=== PATIENT | male | born 1990 | race Two or more races ===

== ENCOUNTER 2023-07-24 15:07 | Emergency (ER) | payer MEDICAID ==
[~2023-07-24] VITALS: Ht 177.8 cm; Wt 68.2 kg
[2023-07-24 15:48] LABS: BASOPHILS % (AUTO) 0.6 % (0.0-2.0); EOSINOPHILS % (AUTO) 4.5 % (1.0-6.0); HEMATOCRIT 41.9 % (41-53); HEMOGLOBIN 14.4 g/dL (13.5-17.5); LYMPHOCYTES # (AUTO) 3.8 K/uL (1.0-4.8); LYMPHOCYTES % (AUTO) 39.1 % (22.0-44.0); MEAN CORPUSCULAR HEMOGLOBIN 29.3 pg (26.0-34.0); MEAN CORPUSCULAR HGB CONC 34.3 G/dL (31.0-37.0); MEAN CORPUSCULAR VOLUME 85 fL (80-100); MONOCYTES # (AUTO) 0.7 K/uL (0.1-1.0); MONOCYTES % (AUTO) 7.5 % (2.0-9.0); NEUTROPHILS # (AUTO) 4.7 K/uL (1.8-7.7); NEUTROPHILS % (AUTO) 48.3 % (40.0-70.0); PLATELET COUNT (AUTO) 332 K/uL (150-450); WHITE BLOOD COUNT (AUTO) 9.7 K/uL (4.5-11.0)
[2023-07-24 15:55] LABS: ANION GAP 5 mmol/L (8-16); CALCIUM, TOTAL 9.5 mg/dL (8.8-10.5); CARBON DIOXIDE 29 mmol/L (22-29); CHLORIDE 101 mmol/L (98-107); GLOMERULAR FILTR. RATE CALC > 60 mL/min (>60); GLUCOSE,RANDOM 125 mg/dL (70-110); POTASSIUM 4.2 mmol/L (3.5-5.1); SODIUM SERUM 135 mmol/L (136-145); UREA NITROGEN, BLOOD 18 mg/dL (7-18)
[2023-07-24 16:01] LABS: ALANINE AMINOTRANSFERASE 65 U/L (12-78); ALBUMIN 4.3 g/dL (3.4-5.0); ALKALINE PHOSPHATASE 106 U/L (46-116); ASPARTATE AMINOTRANSFERASE 30 U/L (15-37); BILIRUBIN,TOTAL 0.2 mg/dL (0.1-1.0); TOTAL PROTEIN, SERUM 8.4 g/dL (6.4-8.2)
[2023-07-24 16:03] LABS: TROPONIN I-HIGH SENSITIVITY 6 ng/L (<76)
[2023-07-24] MEDS ORDERED: ACETAMINOPHEN 500 MG TABLET PO ONE (19:15)
[2023-07-24 19:34] VITALS: BP 133/70; PULSE 72; RESP 18; TEMP 98
== END 2023-07-24 19:37 | disposition home or self-care (01) ==
LOC: EMS 15:08
DX: R51.9 Headache, unspecified (principal); I10 Essential (primary) hypertension; F17.210 Nicotine dependence, cigarettes, uncomplicated
CPT/HCPCS: 70450; 80053; 84484; 85025; 93005; 99284

== ENCOUNTER 2024-02-22 08:56 | Emergency (ER) | payer MEDICAID, OTHER ==
[~2024-02-22] VITALS: Ht 165.1 cm; Wt 77.3 kg
[2024-02-22 09:00] VITALS: BP 142/84; PULSE 88; RESP 18; TEMP 98.7
[2024-02-22] MEDS: ACETAMINOPHEN 500 MG TABLET PO ONE (09:19)
[2024-02-22] MEDS: IBUPROFEN 600 MG TABLET PO ONE (09:19)
[2024-02-22] MEDS ORDERED: ACET-3385 PO (10:06)
[2024-02-22] MEDS ORDERED: IBUP-1492 PO (10:06)
== END 2024-02-22 10:15 | disposition home or self-care (01) ==
LOC: EMS 08:56
DX: S63.501A Unspecified sprain of right wrist, initial encounter (principal); I10 Essential (primary) hypertension; F17.210 Nicotine dependence, cigarettes, uncomplicated; V89.2XXA Person injured in unspecified motor-vehicle accident, traffic, initial encounter; Y93.89 Activity, other specified; Y92.89 Other specified places as the place of occurrence of the external cause; Y99.8 Other external cause status
CPT/HCPCS: 99284; 73110-TC; 73130-TC; Z7502; Z7610

== ENCOUNTER 2024-11-16 22:31 | Emergency (ER) | payer OTHER ==
[~2024-11-16] VITALS: Ht 167.6 cm; Wt 77.3 kg
[~2024-11-16 22:31] MED LIST: ACET-3385 PO; IBUP-1492 PO
[2024-11-16] MEDS ORDERED: ENAL-128 PO (22:51)
[2024-11-16 23:18] LABS: BASOPHILS % (AUTO) 0.3 % (0.0-2.0); EOSINOPHILS % (AUTO) 3.4 % (1.0-6.0); HEMATOCRIT 42.3 % (41-53); HEMOGLOBIN 14.3 g/dL (13.5-17.5); LYMPHOCYTES % (AUTO) 26.9 % (22.0-44.0); MEAN CORPUSCULAR HEMOGLOBIN 28.9 pg (26.0-34.0); MEAN CORPUSCULAR HGB CONC 33.7 G/dL (31.0-37.0); MEAN CORPUSCULAR VOLUME 86 fL (80-100); MONOCYTES # (AUTO) 1.4 K/uL (0.1-1.0); MONOCYTES % (AUTO) 7.3 % (2.0-9.0); NEUTROPHILS # (AUTO) 11.5 K/uL (1.8-7.7); NEUTROPHILS % (AUTO) 62.1 % (40.0-70.0); PLATELET COUNT (AUTO) 297 K/uL (150-450); RED BLOOD CELL COUNT(AUTO) 4.94 MIL/uL (4.50-5.90); RED CELL DISTRIBUTION WIDTH 12.6 % (11.5-14.5); WHITE BLOOD COUNT (AUTO) 18.6 K/uL (4.5-11.0)
[2024-11-16 23:22] LABS: ANION GAP 7 mmol/L (8-16); CARBON DIOXIDE 29 mmol/L (22-29); CHLORIDE 100 mmol/L (98-107); CREATININE 1.07 mg/dL (0.60-1.30); GLOMERULAR FILTR. RATE CALC > 60 mL/min (>60); GLUCOSE,RANDOM 106 mg/dL (70-110); POTASSIUM 3.9 mmol/L (3.5-5.1); SODIUM SERUM 136 mmol/L (136-145); UREA NITROGEN, BLOOD 20 mg/dL (7-18)
[2024-11-16 23:31] LABS: TROPONIN I-HIGH SENSITIVITY 7 ng/L (<76)
[2024-11-16 23:34] VITALS: TEMP 97.9
[2024-11-17 00:31] LABS: CREATINE KINASE, TOTAL ONLY 93 U/L (39-308)
[2024-11-17] MEDS: MORPHINE SULFATE 2 MG/ML SYRINGE IVP ONE (01:23)
[2024-11-17] MEDS ORDERED: SODIUM CHLORIDE 0.9% 100 ML ONE (01:24)
[2024-11-17] MEDS: SODIUM CHLORIDE 0.9% 1,000 ML IV ONE (01:24)
[2024-11-17] MEDS: PIPERACILLIN/TAZO 3.375 GM/D5W 50 ML IV ONE (01:24)
[2024-11-17] MEDS ORDERED: IOHEXOL 350 MG/ML 100 ML VIAL ONE (01:25)
[2024-11-17 01:29] VITALS: BP 129/65; PULSE 76; RESP 18; O2SAT 98
[2024-11-17 01:39] LABS: LACTIC ACID 0.5 mmol/L (0.4-2.0)
[2024-11-17 02:10] LABS: APPEARANCE,URINE CLEAR (CLEAR); BILIRUBIN,URINE NEGATIVE (NEGATIVE); COLOR,URINE LIGHT YELLOW (YELLOW); GLUCOSE, URINE (UA) NEGATIVE (NEGATIVE); KETONES,URINE NEGATIVE (NEGATIVE); LEUKOCYTE ESTERASE ,URINE NEGATIVE (NEGATIVE); NITRATE,URINE NEGATIVE (NEGATIVE); OCCULT BLOOD,URINE NEGATIVE (NEGATIVE); PH,URINE 5.5 (5.0-8.0); PH,URINE DRUG SCREEN 5.5 (5.0-8.0); PROTEIN,URINE TRACE mg/dL (NEGATIVE); SPECIFIC GRAVITIY, URINE 1.027 (1.003-1.030); UROBILINOGEN,URINE <=1.0 mg/dL (<=1.0)
[2024-11-17 02:15] LABS: AMPHET/METH SCREEN,URINE NEGATIVE (NEGATIVE); BARBITURATE SCREEN, URINE NEGATIVE (NEGATIVE); BENZODIAZEPINES SCREEN,URINE NEGATIVE (NEGATIVE); CANNABINOID SCREEN,URINE NEGATIVE (NEGATIVE); COCAINE SCREEN,URINE NEGATIVE (NEGATIVE); METHADONE SCREEN, URINE NEGATIVE (NEGATIVE); OPIATE SCREEN,URINE NEGATIVE (NEGATIVE); PHENCYCLIDINE SCREEN,URINE NEGATIVE (NEGATIVE)
[2024-11-17 02:16] LABS: ALCOHOL, URINE DRUG SCREEN NEGATIVE (NEGATIVE)
== END 2024-11-17 04:07 | disposition home or self-care (01) ==
LOC: EMS 22:46
DX: R07.89 Other chest pain (principal); I10 Essential (primary) hypertension; F17.210 Nicotine dependence, cigarettes, uncomplicated; Z79.899 Other long term (current) drug therapy
CPT/HCPCS: 99285; 71045; 80048; 82550; 83605; 84484; 85025; 85379; 87040; 93005; 80307; 81003; 96365; 71260; 96375; 36415; Q9967; J2270; J7030; J7050